=== PATIENT | female | born 1995 | race Caucasian/White ===

== ENCOUNTER → 2017-06-26 | Outpatient (REF) ==
[~2017-06-26] MED LIST: DEPO-PROVER150 MG/M1; NO HOME MEDICATIONS; NORCO 325 MG-51 TAB PO
== END ==
LOC: ZLAB.WCH 17:20
DX: Z01.89 Encounter for other specified special examinations (principal)

== ENCOUNTER 2018-05-02 16:24 | Outpatient (CLI) | payer BC ==
[~2018-05-02] VITALS: Ht 170.2 cm; Wt 125.5 kg
[2018-05-02 16:38] VITALS: BP 112/75; PULSE 108; TEMP 98.3
[2018-05-02] MEDS ORDERED: PROTONIX 40MG T40 MG PO (16:45)
[2018-05-02] MEDS ORDERED: ZOFRAN 4MG T4 MG/TAB PO (16:45)
[2018-05-02] MEDS ORDERED: ZOLOFT 25MG25 MG PO (16:46)
[2018-05-02] MEDS ORDERED: PRENATAL (16:46)
[2018-05-02 17:00] VITALS: BP 112/75; PULSE 108; TEMP 98.3
[2018-05-02 17:01] LABS: COLLECTION METHOD CLEAN CATCH
[2018-05-02 17:11] LABS: MUCOUS Present /lpf; PH 5 (5-8); URINE APPEARANCE Hazy; URINE BACTERIA Rare /hpf; URINE BILIRUBIN Negative (NEGATIVE); URINE BLOOD 1+ (NEGATIVE); URINE COLOR Yellow; URINE GLUCOSE 1+ (NEGATIVE); URINE KETONE Negative (NEGATIVE); URINE LEUKOCYTE ESTERASE Trace (NEGATIVE); URINE NITRATE Negative (NEGATIVE); URINE PROTEIN(semi-quant) 1+ (NEGATIVE)
[2018-05-02 17:40] VITALS: BP 119/70; PULSE 104
== END 2018-05-02 17:50 | disposition home or self-care (01) ==
LOC: LDRO 16:24 → LDR 16:30 → LDRO 17:50
PROVIDERS: Obstetrics & Gynecology
DX: O99.89 Other specified diseases and conditions complicating pregnancy, childbirth and the puerperium (principal); M54.9 Dorsalgia, unspecified; R25.2 Cramp and spasm; R35.0 Frequency of micturition; Z3A.32 32 weeks gestation of pregnancy
CPT/HCPCS: OP

== ENCOUNTER 2018-06-26 14:24 | Outpatient (CLI) | payer BC ==
[~2018-06-26] VITALS: Ht 170.2 cm; Wt 130.0 kg
[~2018-06-26 14:24] MED LIST changes: +PRENATAL; +PROTONIX 40MG T40 MG PO; +ZOFRAN 4MG T4 MG/TAB PO; +ZOLOFT 25MG25 MG PO
[2018-06-26 14:42] VITALS: BP 150/70; PULSE 91; TEMP 98.5
[2018-06-26 16:15] VITALS: BP 131/85; PULSE 85
== END 2018-06-26 17:00 | disposition home or self-care (01) ==
LOC: LDRO 14:24 → LDR 14:35 → LDRO 17:00
DX: Z34.93 Encounter for supervision of normal pregnancy, unspecified, third trimester (principal); Z3A.40 40 weeks gestation of pregnancy
CPT/HCPCS: OP

== ENCOUNTER 2018-06-27 03:45 | Inpatient (IN) | payer BC ==
[2018-06-27] VITALS (32 sets, daily range): BP systolic 109–171; BP diastolic 56–100; PULSE 87–118; TEMP 97.7–99.1
[~2018-06-27] VITALS: Ht 170.2 cm; Wt 129.1 kg
[2018-06-27 05:20] LABS: COLLECTION METHOD CLEAN CATCH
[2018-06-27 05:28] LABS: BASO % 0.1 % (0.0-2.0); EOS # 0.1 (0.0-0.7); EOS % 0.3 % (0-4.0); GRAN # 12.1 (1.4-6.5); GRAN % 76.9 % (42.2-75.2); HEMOGLOBIN 10.5 g/dl (12.5-16.0); LYMPH # 2.5 (1.2-3.4); LYMPH % 15.5 % (20.0-51.0); MEAN CELL VOLUME 87 fl (80.0-100.0); MEAN CORPUSCULAR HEMOGLOBIN 28 pg (27.0-31.0); MEAN CORPUSCULAR HGB CONC 32 g/dl (33.0-37.0); MEAN PLATELET VOLUME 11.4 fl (7.4-10.4); MONO # 1.1 (0.1-0.6); MONO % 6.8 % (1.7-9.3); PLATELET COUNT 218 K/mm3 (130-400); RED BLOOD COUNT 3.77 M/mm3 (4.10-5.30); REDCELL DISTRIBUTION WIDTH-CV 14.6 % (11.5-14.5)
[2018-06-27 05:33] LABS: HEMATOCRIT 32.6 % (37.0-47.0)
[2018-06-27 05:39] LABS: MUCOUS Present /lpf; PH 6 (5-8); URINE APPEARANCE Clear; URINE BACTERIA Rare /hpf; URINE BILIRUBIN Negative (NEGATIVE); URINE BLOOD 2+ (NEGATIVE); URINE COLOR Yellow; URINE GLUCOSE Negative (NEGATIVE); URINE KETONE Negative (NEGATIVE); URINE LEUKOCYTE ESTERASE 3+ (NEGATIVE); URINE NITRATE Negative (NEGATIVE); URINE PROTEIN(semi-quant) Negative (NEGATIVE); URINE UROBILINOGEN Negative (NEGATIVE)
[2018-06-27 05:42] LABS: ALBUMIN 3.2 gm/dL (3.5-5.0); BILIRUBIN,TOTAL 0.2 mg/dL (0.0-1.0); CALCIUM 9.1 mg/dL (8.4-10.2); CREATININE, serum 0.56 mg/dL (0.52-1.25); TOTAL PROTEIN 6.4 gm/dL (6.4-8.2)
[2018-06-28 01:00] VITALS: BP 143/80; PULSE 89
[2018-06-28] MEDS ORDERED: IBU800 M1 PO (07:48)
[2018-06-28 08:05] VITALS: BP 135/85; PULSE 81; TEMP 97.9
[2018-06-28 11:20] VITALS: BP 152/98
[2018-06-28 15:45] VITALS: BP 144/93; PULSE 94; TEMP 98.3
[2018-06-28 20:15] VITALS: BP 147/97; PULSE 93; TEMP 98.4
[2018-06-29 07:20] VITALS: BP 145/88; PULSE 88; TEMP 97.9
[2018-06-29] MEDS ORDERED: NORMODYNE100 MG PO (08:21)
== END 2018-06-29 09:50 | disposition home or self-care (01) | DRG 807 ==
LOC: LDRO 03:45 → LDR 04:00 → OB 13:30
PROVIDERS: Obstetrics & Gynecology
PROC: 10E0XZZ Delivery of Products of Conception, External Approach (ICD-10-PCS; principal; 2018-06-27)
PROC: 0KQM0ZZ Repair Perineum Muscle, Open Approach (ICD-10-PCS; 2018-06-27)
DX: O13.4 Gestational [pregnancy-induced] hypertension without significant proteinuria, complicating childbirth (principal); Z37.0 Single live birth; Z3A.40 40 weeks gestation of pregnancy; O70.1 Second degree perineal laceration during delivery; O99.824 Streptococcus B carrier state complicating childbirth; O99.214 Obesity complicating childbirth; O21.0 Mild hyperemesis gravidarum; O99.02 Anemia complicating childbirth; K21.9 Gastro-esophageal reflux disease without esophagitis; O99.344 Other mental disorders complicating childbirth; O76 Abnormality in fetal heart rate and rhythm complicating labor and delivery; F41.8 Other specified anxiety disorders
CPT/HCPCS: J1200; J2540; J2590; J7120

== ENCOUNTER 2024-03-04 00:10 | Inpatient (IN) | payer OTHER ==
[~2024-03-04] VITALS: Ht 167.6 cm; Wt 143.6 kg
[2024-03-04] VITALS (17 sets, daily range): BP systolic 137–167; BP diastolic 72–103; PULSE 93–110; TEMP 98–98.4
[~2024-03-04 00:10] MED LIST changes: +ASPIRIN 81M81 MG/TA2 PO; +IBU800 M1 PO; +NORMODYNE100 MG PO; +PHARMASSURE MA500 MG PO; +TYLENOL 500MG500 MG PO; +ZOLOFT 50MG50 MG PO
[2024-03-04] MEDS ORDERED: LR 1,000 ML IV SCH (01:00)
[2024-03-04] MEDS ORDERED: Penicillin G Potassium 5,000,000 UNITS in NS 100 ML IV ONE (01:00)
[2024-03-04 01:34] LABS: BASO % 0.2 % (0.0-2.0); EOS # 0.2 K/mm3 (0.0-0.7); EOS % 1.1 % (0.0-4.0); GRAN # 10.4 K/mm3 (1.4-6.5); GRAN % 68.7 % (42.2-75.2); HEMOGLOBIN 11.3 g/dl (12.5-16.0); LYMPH # 3.5 K/mm3 (1.2-3.4); LYMPH % 22.9 % (20.0-51.0); MEAN CELL VOLUME 90 fl (80.0-100.0); MEAN CORPUSCULAR HEMOGLOBIN 29 pg (27-31); MEAN CORPUSCULAR HGB CONC 32 g/dl (33.0-37.0); MEAN PLATELET VOLUME 11.3 fl (7.4-10.4); MONO % 6.7 % (1.7-9.3); PLATELET COUNT 269 K/mm3 (130-400); RED BLOOD COUNT 3.94 M/mm3 (4.10-5.30); REDCELL DISTRIBUTION WIDTH-CV 14.3 % (11.5-14.5)
[2024-03-04 01:35] LABS: HEMATOCRIT 35.4 % (37.0-47.0)
[2024-03-04 01:54] LABS: ALBUMIN 2.6 g/dL (3.5-5.0); BILIRUBIN,TOTAL 0.4 mg/dL (0.2-1.2); CALCIUM 9.3 mg/dL (8.4-10.2); CREATININE, serum 0.64 mg/dL (0.57-1.11); POTASSIUM 3.7 mEq/L (3.5-4.5); TOTAL PROTEIN 6.6 g/dl (6.2-8.1)
[2024-03-04] MEDS ORDERED: ROPivacaine PF 0.2% 200 ML IV ONE (01:55)
[2024-03-04] MEDS ORDERED: Ondansetron 4 MG/2 ML VIAL IV PRN (02:00)
[2024-03-04] MEDS ORDERED: LR & Oxytocin 500 ML IV SCH (02:00)
[2024-03-04] MEDS ORDERED: diphenhydrAMINE 25 MG CAP PO PRN (02:00)
[2024-03-04] MEDS ORDERED: ePHEDrine 50 MG/10 ML VIAL IV PRN (02:00)
[2024-03-04] MEDS ORDERED: Naloxone 0.4 MG/ML VIAL IV PRN ×2 (02:00→05:00)
[2024-03-04] MEDS ORDERED: diphenhydrAMINE 50 MG/ML 1 ML VIAL IV PRN (02:00)
--- NOTE | 2024-03-04 02:00 | NUR ---
FHT tracing intermittently and there are breaks in the tracing due to maternal position and BMI. RN at bedside adjusting US. Pt also sitting upright at 0135 for epidural placement. RN remains at bedside during this time.
--- NOTE | 2024-03-04 02:15 | NUR ---
RN UNABLE TO DETERMINE ACCELS OR DECELS DURING THIS TRACING DUE TO MOVEMENT, MATERNAL POSITION AND BMI. RN AT BEDSIDE ATTEMPTING TO ADJUST US.
--- NOTE | 2024-03-04 02:30 | NUR ---
LATE AND VARIABLE DECELS NOTED BY THIS RN, PT CONSENTS TO SVE AND PT FOUND TO BE COMPLETE AND 0 STATION. FHT INTERMITTENLY TRACING DURING THIS TIME.
--- NOTE | 2024-03-04 02:45 | NUR ---
0231: FHT NOT TRACING AT THIS TIME. RN AT BEDSIDE ATTEMPTING TO OBTAIN FHT UNSUCCESSFULLY. 0234: DECEL AUDIBLY HEARD DOWN INTO THE 60'S AT THIS TIME. RN AT THE BEDSIDE MONITORING WELL BEING. 0238: DR RODRÍGUEZ CALLED WITH UPDATE ON STATUS. PT REPOSITIONED TO LEFT LATERAL SIDE TO AIDE IN RECOVERY. RN CONTINUES TO ATTEMPT TO OBTAIN HEART TONES.
--- NOTE | 2024-03-04 03:00 | NUR ---
0250: DR RODRÍGUEZ ON THE UNIT. 0252: DR RODRÍGUEZ IN THE ROOM, PT READY FOR DELIVERY, DR RODRÍGUEZ GOWNED AND GLOVED AND PT REPOSITIONED IN SEMI FOWLERS FOR DELIVERY. 0255: FEMALE INFANT DELIVERED VIA AT THIS TIME.
[2024-03-04] MEDS ORDERED: Loratadine 10 MG TAB PO PRN (03:30)
[2024-03-04] MEDS ORDERED: Magnes Hydrox (MOM) 80 MG/ML 30 ML CUP PO PRN (03:30)
[2024-03-04] MEDS ORDERED: Penicillin G Potassium 2,500,000 UNITS in NS 100 ML IV SCH (04:56)
[2024-03-04] MEDS ORDERED: Phenylephrine/Mineral Oil/Petrolatum 57 GM TUBE RC PRN (05:00)
[2024-03-04] MEDS ORDERED: oxyCODONE 5 MG TAB PO PRN (05:00)
[2024-03-04] MEDS ORDERED: Mag/Al Hydrox/Simeth Susp 30 ML CUP PO PRN (05:00)
[2024-03-04] MEDS ORDERED: Measles/Mumps/Rubella Virus Vaccine Live w Diluent 0.5 ML VIAL SQ SCH (05:00)
[2024-03-04] MEDS ORDERED: Witch Hazel 50% Pads Bulk TUB TP PRN (05:00)
[2024-03-04] MEDS ORDERED: Ibuprofen 800 MG TAB PO SCH (05:00)
[2024-03-04] MEDS ORDERED: Acetaminophen 500 MG TAB PO SCH (05:00)
--- NOTE | 2024-03-04 06:20 | NUR ---
CARE RECIEVED FROM RUKHSANA FARLEY RN. IT IS REPORTED BY RUKHSANA TO THIS RN THAT PATIENT IS FINISHED WITH HER RECOVERY AND HAS HAD ONE VOID. THIS RN NOTIFIED BY ROSE MARY THAT BLEEDING HAS BEEN WNL.
[2024-03-04] MEDS ORDERED: Sennosides/Docusate 8.6-50 MG TAB PO SCH (08:00)
[2024-03-04] MEDS ORDERED: IBU800 M1 PO (10:57)
--- NOTE | 2024-03-04 14:25 | NUR ---
1400 THIS RN ASSUMES CARE OF PT FROM FISH LUGO RN.
[2024-03-04] MEDS ORDERED: traZODone 50 MG TAB PO PRN (21:00)
[2024-03-05 00:35] VITALS: BP 130/82; PULSE 78; TEMP 98.2
[2024-03-05 07:48] VITALS: BP 138/93; PULSE 93; TEMP 98.1
[2024-03-05 17:00] VITALS: BP 138/91; PULSE 95; TEMP 98.9
[2024-03-05 20:25] VITALS: BP 139/94; PULSE 97; TEMP 98
[2024-03-06 08:30] VITALS: BP 136/98; PULSE 100; TEMP 98
[2024-03-06] MEDS ORDERED: PROCARDIA XL 3030 MG PO (08:58)
[2024-03-06] MEDS ORDERED: NIFEdipine XL 30 MG TAB PO SCH (09:00)
== END 2024-03-06 10:25 | disposition home or self-care (01) | DRG 807 ==
LOC: LDR 00:10 → OB 00:10
PROVIDERS: Obstetrics & Gynecology; ADMIT Student in an Organized Health Care Education/Training Program
PROC: 10E0XZZ Delivery of Products of Conception, External Approach (ICD-10-PCS; principal; 2024-03-04)
PROC: 0HQ9XZZ Repair Perineum Skin, External Approach (ICD-10-PCS; 2024-03-04)
DX: O99.824 Streptococcus B carrier state complicating childbirth (principal); Z37.0 Single live birth; O70.0 First degree perineal laceration during delivery; Z3A.39 39 weeks gestation of pregnancy; O99.214 Obesity complicating childbirth; E66.01 Morbid (severe) obesity due to excess calories; O13.4 Gestational [pregnancy-induced] hypertension without significant proteinuria, complicating childbirth; F41.9 Anxiety disorder, unspecified; O77.0 Labor and delivery complicated by meconium in amniotic fluid; O99.344 Other mental disorders complicating childbirth
CPT/HCPCS: J2540; J2590; J2795; J7120